=== PATIENT | female | born 1980 | race Caucasian/White ===

== ENCOUNTER 2021-11-12 12:47 | Outpatient (CLI) | payer BC ==
[2021-11-12 18:30] LABS: THYROID STIMULATING HORMONE 1.05 uIU/mL (0.34-5.60)
[2021-11-12 18:32] LABS: FREE T3 3.11 pg/mL (2.5-3.9); FREE T4 (FREE THYROXINE) 0.81 ng/dL (0.58-1.64)
== END 2021-11-12 12:48 | disposition home or self-care (01) ==
LOC: LAB.N 12:47
PROVIDERS: ATTEND Naturopath
DX: E07.89 Other specified disorders of thyroid (principal)
CPT/HCPCS: 36415; 84439; 84443; 84481

== ENCOUNTER 2023-05-04 12:45 | Outpatient (CLI) | payer BC | END 2023-05-04 13:00 | disposition home or self-care (01) | LOC: LAB.N 12:45 | PROVIDERS: ATTEND Specialist | DX: L03.90 Cellulitis, unspecified (principal) | CPT/HCPCS: 87070; 87077; 87181; 87205 ==